=== PATIENT | male | born 2000 | race African-American/Black ===

== ENCOUNTER 2021-10-01 03:07 | Emergency (ER) | payer MEDICAID ==
[~2021-10-01] VITALS: Ht 170.2 cm; Wt 150.0 kg
[2021-10-01 05:16] VITALS: BP 134/73
== END 2021-10-01 06:12 | disposition left against medical advice (07) ==
LOC: ER 03:07
DX: K08.89 Other specified disorders of teeth and supporting structures (principal); Z53.21 Procedure and treatment not carried out due to patient leaving prior to being seen by health care provider